=== PATIENT | male | born 1960 | race Caucasian/White ===

== ENCOUNTER 2018-05-30 10:38 | Emergency (ER) | payer OTHER ==
[2016-10-31 11:19] VITALS: BMI 29.3
[~2018-05-30 10:38] MED LIST: ALBU2.5V36 IH; ALBU8.5H12 IH; AZIT-18 PO; CALC-852 PO; CEFU250T11 PO; CEPH500C24 PO; CETI-176 PO; FLUT16SP20 NS; FLUT1DIS29 IH; GABA-549 PO; INDO-23 PO; LANS30CA63 PO; LEVO-3 PO; MULT-885 PO; OXYC5TAB38 PO; PRED20TA6 PO; PULMOCORT INH; TIO18R INH; VERA120C9 PO; ZILE600T5 PO; leutin PO; pulmicort
[2018-05-30] MEDS ORDERED: DIPHTH/TETANUS/ACEL. PERTUSSIS IM ONLY ONE (10:45)
--- NOTE | 2018-05-30 10:49 | ER Report ---
History and Physical Time Seen By MD: 10:47 Hx. of Stated Complaint: pt cut left thigh with chainsaw this morning around 9am. HPI/ROS CHIEF COMPLAINT: Wound to the thigh HISTORY OF PRESENT ILLNESS: 50 atrial male comes emergency Department today with a chainsaw laceration to the anterior portion of his mid thigh patient was cutting wood and the chainsaw bouncing [place] his thigh patient has no additional complaints at this time REVIEW OF SYSTEMS: Respiratory: No cough, no dyspnea. Cardiovascular: No chest pain, no palpitations. Gastrointestinal: No vomiting, no abdominal pain. Musculoskeletal: No back pain. Remainder of the 14 system rev: Yes Allergies: Coded Allergies: Sulfa (Sulfonamide Antibiotics) (Verified Allergy, Unknown, 10/30/16) Home Meds Active Scripts Oxycodone Hcl (OXYCODONE HCL) 5 Mg Tablet, 5-10 MG PO Q3H PRN for PAIN, #30 TAB Prov:GAY FLOWER DO 11/05/16 Cephalexin Monohydrate (CEPHALEXIN) 500 Mg Cap, 500 MG PO QID, #40 CAP Prov:GAY FLOWER DO 11/05/16 Reported Medications Levothyroxine Sodium (LEVOTHYROXINE SODIUM) 100 Mcg Tablet, 112 MCG PO QDAY, TAB 10/30/16 [pulmocort] No Conflict Check, 2 PUFF INH BID 10/30/16 [leutin] No Conflict Check, 1 TAB PO QAM 10/30/16 Calcium Carbonate/Vitamin D3 (CALCIUM + VITAMIN D TABLET) 1 Each Tablet, 1 EACH PO QHS 06/26/14 Multivitamin (DAILY VITAMIN) 1 Each Tablet, 1 EACH PO QDAY 06/26/14 Cetirizine Hcl (ZYRTEC) 10 Mg Tablet, 10 MG PO QDAY, TAB TAKE 1 TABLET DAILY. 06/26/14 Lansoprazole (LANSOPRAZOLE) 30 Mg Capsule.dr, 30 MG PO QHS 06/26/14 Fluticasone/Salmeterol (ADVAIR 500-50 DISKUS) 1 Each Disk.w.dev, 1 EACH IH BID 06/26/14 Tiotropium [place] (SPIRIVA) 18 Mcg/Cap Inh, 18 MCG INH QAM, INH 06/26/14 Zileuton (ZYFLO) 600 Mg Tablet, 1200 MG PO BID 06/26/14 Verapamil Hcl (VERAPAMIL ER) 120 Mg Cap24h.pel, 120 MG PO QAM 06/26/14 Fluticasone Propionate (FLONASE) 16 Gm [place].susp, 2 SPRAY NS BID 06/26/14 Albuterol Sul Hfa 90 Mcg 8 Gm (VENTOLIN HFA 90 MCG 8 GM) 8.5 Gm Hfa.aer.ad, 2 PUFF IH Q4-6H PRN for SHORTNESS OF BREATH 06/26/14 Albuterol Sulfate 0.083% (ALBUTEROL SULFATE 0.083%) 2.5 Mg/3 Ml Vial.neb, 2.5 MG IH 06/26/14 Indomethacin (INDOMETHACIN) 50 Mg Capsule, 50 MG PO TID PRN for HEADACHE, CAPSULE 06/26/14 Gabapentin (GABAPENTIN) 300 Mg Capsule, 600 MG PO QHS, CAPSULE 06/26/14 Reviewed Nurses Notes: Yes Old Medical Records Reviewed: Yes Hx Smoking: No Smoking Status: Never Smoker Hx Substance Use Disorder: No Hx Alcohol Use: Yes Constitutional Vital Sign - Last 24 Hours 05/30/18 10:40 Temp 99.1 Pulse 97 Resp 18 B/P (MAP) 174/74 Pulse Ox 94 Physical Exam General appearance: Alert no distress. Respiratory: Chest is non tender, lungs are clear to auscultation. Cardiac: Regular rate and rhythm [ ] Thigh skin patient has a 5.5-6 cm linear clean laceration to the anterior portion of the thigh shallow only involving the tibial dermal layer no fascial involvement no muscle involvement otherwise unremarkable neurovascularly intact no active bleeding DIFFERENTIAL DIAGNOSIS: After history and physical exam differential diagnosis was considered for thigh wound Medical Decision Making ED Course/Re-evaluation ED Course He medical decision making Procedural note wound was cleaned [place] irrigated with 2 L of saline and anesthetized with 6 mL of 1% lidocaine with epinephrine 8 interrupted sutures were placed with a 3-0 nylon with good cosmesis sterile dressing applied patient tolerated well Tetanus was updated patient had sterile dressing applied to the closed wound will follow up with primary care in 7-10 days for wound evaluation and possible removal of sutures Decision to Disposition Date: May 30, 2018 Decision to Disposition Time: 11:43 Depart Departure Latest Vital Signs Vital Signs Date Time Temp Pulse Resp B/P (MAP) Pulse Ox O2 Delivery O2 Flow Rate FiO2 05/30/18 10:40 99.1 97 18 174/74 94 Impression: Primary Impression: Laceration Condition: Improved Disposition: HOME OR SELF-CARE Referrals: REX MAYS MD 1 Week New Scripts Cephalexin (KEFLEX) 500 Mg Capsule 500 MG PO Q6H, #20 CAP 0 Refills TAKE ONE CAPSULE BY MOUTH EVERY SIX HOURS Prov: MARANDA HERNANDEZ MD 05/30/18 Patient Instructions: Laceration (DC) MARANDA HERNANDEZ MD May 30, 2018 10:49
[2018-05-30] MEDS ORDERED: CEPH-13 PO (11:43)
[2018-05-30 11:53] VITALS: BP 127/92
--- NOTE | 2018-05-30 14:18 | RADIOLOGY IMAGING REPORT ---
FACILITY: [facility] - [place] PATIENT NAME: Moisés Evans : 1960 MR: [id number] V: [id number] EXAM DATE: ORDERING PHYSICIAN: MARANDA HERNANDEZ TECHNOLOGIST: Location: [facility] - [place] Patient: Moisés Evans : 1960 Visit/Account:[id number] Date of Sevice: 05/30/2018 FEMUR LEFT Indication: trauma wound foreign body eval Comparison: None. Findings: Femur demonstrates normal mineralization. There is a soft tissue laceration in the mid thi gh. There is no radiopaque foreign body. IMPRESSION: 1. No evidence of fracture or radiopaque foreign body. 2. Laceration mid thigh consistent with chainsaw injury. Report Dictated By: Tho Collaoz at 05/30/2018 2:12 PM Report E-Signed By: Tho Collazo at 05/30/2018 2:13 PM WSN:[email or web address]
== END 2018-05-30 11:55 | disposition home or self-care (01) ==
LOC: ER 10:42
DX: S71.112A Laceration without foreign body, left thigh, initial encounter (principal); W29.3XXA Contact with powered garden and outdoor hand tools and machinery, initial encounter
CPT/HCPCS: 90471; 90715; 99283